=== PATIENT | male | born 1985 | race African-American/Black ===

== ENCOUNTER 2017-09-30 11:39 | Emergency (ER) | payer MEDICAID ==
[~2017-09-30] VITALS: Ht 182.9 cm; Wt 129.5 kg
[2017-09-30] MEDS ORDERED: KETOROLAC 60MG/2ML VIAL IM ONE (14:30)
[2017-09-30 16:13] VITALS: BP 136/81
== END 2017-09-30 16:13 | disposition home or self-care (01) ==
LOC: ER 12:28
DX: R51 Headache (principal); K64.9 Unspecified hemorrhoids; I10 Essential (primary) hypertension
CPT/HCPCS: 96372; 99283; J1885; Z7610

== ENCOUNTER 2017-10-15 14:54 | Emergency (ER) | payer MEDICAID ==
[~2017-10-15] VITALS: Ht 180.3 cm; Wt 130.0 kg
[2017-10-15] MEDS ORDERED: SODIUM CHLORIDE 0.9% 1,000 ML IV ONE (18:41)
[2017-10-15] MEDS ORDERED: LIDOCAINE HCL 1% 20ML VIAL (Pyxis) INJ MC ONE (18:45)
[2017-10-15] MEDS ORDERED: KETOROLAC 30MG/ML VIAL IV ONE (18:45)
[2017-10-15] MEDS ORDERED: METOCLOPRAMIDE HCL 10MG/2ML VIAL IV ONE (18:45)
[2017-10-15] MEDS ORDERED: BACITRACIN ZINC OINT UDPKT TOP ONE (18:45)
[2017-10-15] MEDS ORDERED: METOCLOPRAMIDE HCL 10MG TABLET PO ONE (19:30)
[2017-10-15] MEDS ORDERED: KETOROLAC 60MG/2ML VIAL IM ONE (19:30)
[2017-10-15 19:40] VITALS: BP 116/72
== END 2017-10-15 20:00 | disposition home or self-care (01) ==
LOC: ER 15:29
DX: R51 Headache (principal); L02.211 Cutaneous abscess of abdominal wall; I10 Essential (primary) hypertension
CPT/HCPCS: 96372; 99283; J1885; Z7610; J7030; J8597

== ENCOUNTER 2018-07-31 08:51 | Emergency (ER) | payer MEDICAID ==
[~2018-07-31] VITALS: Ht 180.3 cm; Wt 127.0 kg
[2018-07-31] MEDS ORDERED: KETOROLAC 30MG/ML VIAL IV STA (10:52)
[2018-07-31] MEDS ORDERED: ACETAMINOPHEN 325MG TABLET PO STA (10:52)
[2018-07-31] MEDS ORDERED: CEFTRIAXONE SODIUM 250 MG/VIAL IM ONE (11:45)
[2018-07-31] MEDS ORDERED: AZITHROMYCIN 500 MG TABLET PO ONE (11:45)
[2018-07-31] MEDS ORDERED: KETOROLAC 60MG/2ML VIAL IM ONE (11:45)
[2018-07-31 11:55] LABS: BASOPHILS % 0.7 % (0.0-2.0); EOSINOPHILS % 2.9 % (0.0-5.0); HEMATOCRIT. 44.6 % (42.0-52.0); HEMOGLOBIN. 14.7 g/dL (14.0-18.0); LYMPHOCYTES % 28.3 % (20.0-50.0); MEAN CORPUSCULAR VOLUME 85.1 fL (80.0-94.0); MEAN PLATELET VOLUME 8.7 fl (7.4-10.4); MONOCYTES % 7.7 % (2.0-8.0); NEUTROPHILS % 60.4 % (40.0-76.0); PLATELET 243 x1000/uL (130-400); RED BLOOD CELL COUNT 5.24 mill/uL (4.7-6.1); RED CELL DISTRIBUTION WIDTH 16.1 % (11.6-14.6)
[2018-07-31 12:01] LABS: CHLORIDE 108 mEq/L (98-107)
[2018-07-31 13:12] LABS: CLARITY URINE CLEAR (CLEAR); COLOR URINE YELLOW (YELLOW); KETONES URINE NEGATIVE (NEGATIVE); LEUKOCYTE ESTERASE URINE NEGATIVE (NEGATIVE); NITRITE URINE NEGATIVE (NEGATIVE); OCCULT BLOOD URINE NEGATIVE (NEGATIVE); PROTEIN URINE NEGATIVE (NEGATIVE); SPECIFIC GRAVITY URINE 1.023 (1.005-1.030)
[2018-07-31 14:12] VITALS: BP 147/87
== END 2018-07-31 14:18 | disposition home or self-care (01) ==
LOC: ER 08:51
DX: B34.9 Viral infection, unspecified (principal)
CPT/HCPCS: 36415; 71045; 80053; 81003; 85025; 87804; 96372; 99285; J0696; J1885; Z7610

== ENCOUNTER 2018-08-22 15:14 | Emergency (ER) | payer MEDICAID ==
[~2018-08-22] VITALS: Ht 180.3 cm; Wt 127.0 kg
[2018-08-22 15:28] VITALS: BP 146/87
== END 2018-08-22 18:15 | disposition home or self-care (01) ==
LOC: ER 15:14
DX: G43.909 Migraine, unspecified, not intractable, without status migrainosus (principal)
CPT/HCPCS: 99282